=== PATIENT | male | born 1990 | race Caucasian/White ===

== ENCOUNTER 2022-02-10 17:01 | Inpatient (IN) | payer OTHER, SELFPAY ==
[~2022-02-10] VITALS: Ht 180.3 cm; Wt 64.4 kg
[2022-02-10 17:56] LABS: HEMATOCRIT 42.2 % (42.0-52.0); HEMOGLOBIN 13.9 g/dl (13.5-17.5); MEAN CORPUSCULAR HEMOGLOBIN 29.8 pg (27.0-33.0); MEAN CORPUSCULAR HGB CONC 32.9 g/dl (32.0-36.5); MEAN CORPUSCULAR VOLUME 90.4 fl (80.0-96.0); PLATELET COUNT, AUTOMATED 190 10^3/uL (150-450); RED BLOOD COUNT 4.67 10^6/uL (4.30-6.10); WHITE BLOOD COUNT 9.2 10^3/uL (4.0-10.0)
[2022-02-10 18:36] LABS: ACETAMINOPHEN LEVEL < 2.0 UG/ML (10.0-30.0); ALT/SGPT 33 U/L (12-78); BILIRUBIN,DIRECT 0.1 MG/DL (0.0-0.2); BILIRUBIN,TOTAL 0.3 MG/DL (0.2-1.0); BLOOD UREA NITROGEN 12 MG/DL (7-18); CALCIUM LEVEL 9.1 MG/DL (8.5-10.1); CARBON DIOXIDE LEVEL 31 MEQ/L (21-32); CHLORIDE LEVEL 106 MEQ/L (98-107); CREATININE FOR GFR 0.75 MG/DL (0.70-1.30); ETHYL ALCOHOL (ETHANOL) < 0.003 % (0.000-0.010); GLOMERULAR FILTRATION RATE > 60.0 (>60); GLUCOSE, FASTING 97 MG/DL (70-100); POTASSIUM SERUM 3.8 MEQ/L (3.5-5.1); SALICYLATE LEVEL < 1.7 MG/DL (5.0-30.0); SODIUM LEVEL 140 MEQ/L (136-145); THYROID STIMULATING HORMONE 0.653 uIU/ML (0.358-3.740)
[2022-02-10 18:39] LABS: AMPHETAMINES LEVEL URINE NEGATIVE (NEGATIVE); BARBITURATES URINE NEGATIVE (NEGATIVE); BENZODIAZEPINES URINE NEGATIVE (NEGATIVE); CANNABINOIDS URINE NEGATIVE (NEGATIVE); COCAINE METABOLITE URINE NEGATIVE (NEGATIVE); METHADONE URINE NEGATIVE (NEGATIVE); OPIATES URINE NEGATIVE (NEGATIVE); PHENCYCLIDINE URINE NEGATIVE (NEGATIVE)
[2022-02-10 18:46] LABS: RSV AMPLIFICATION NEGATIVE (NEGATIVE)
[2022-02-10] MEDS ORDERED: MOM 30ML SUSPENSION UDC PO PRN (21:10)
[2022-02-10] MEDS ORDERED: OLANZapine ORAL DISINTEGRATING TAB 5MG PO PRN (21:10)
[2022-02-10] MEDS ORDERED: MAALOX 30 ML SUSP *UDC PO PRN (21:10)
[2022-02-10] MEDS ORDERED: HOME MED LIST COMPLETE! XX SCH (21:30)
[2022-02-11 00:11] VITALS: BP 136/76
[2022-02-11 06:30] VITALS: BP 111/57
[2022-02-11] MEDS ORDERED: OLANZapine 5 MG TAB PO SCH (09:00)
[2022-02-11 16:37] VITALS: BP 154/70
[2022-02-11 19:05] LABS: BLOOD UREA NITROGEN 10 MG/DL (7-18); CALCIUM LEVEL 8.8 MG/DL (8.5-10.1); CARBON DIOXIDE LEVEL 30 MEQ/L (21-32); CHLORIDE LEVEL 108 MEQ/L (98-107); CREATININE FOR GFR 0.82 MG/DL (0.70-1.30); GLOMERULAR FILTRATION RATE > 60.0 (>60); GLUCOSE, FASTING 134 MG/DL (70-100); POTASSIUM SERUM 3.7 MEQ/L (3.5-5.1); SODIUM LEVEL 143 MEQ/L (136-145)
[2022-02-11] MEDS: OLANZapine 5 MG TAB PO SCH (23:03)
[2022-02-11] MEDS: VALPROIC ACID 250MG CAP PO SCH (23:04)
[2022-02-12 06:00] VITALS: BP 136/65
[2022-02-12] MEDS: amLODIPine 5 MG TAB PO SCH (09:10)
[2022-02-12] MEDS: VALPROIC ACID 250MG CAP PO SCH ×2 (09:10→22:12)
[2022-02-12] MEDS: OLANZapine 5 MG TAB PO SCH ×2 (09:10→22:12)
[2022-02-12 18:24] VITALS: BP 140/82
[2022-02-12] MEDS: NICOTINE POLACRILEX 2 MG GUM PO PRN ×2 (18:49→23:39)
[2022-02-12] MEDS: traZODone 50 MG TAB PO PRN (23:39)
[2022-02-13 06:00] VITALS: BP 115/60
[2022-02-13] MEDS: OLANZapine 5 MG TAB PO SCH ×2 (09:29→20:43)
[2022-02-13] MEDS: VALPROIC ACID 250MG CAP PO SCH ×2 (09:29→20:43)
[2022-02-13] MEDS: amLODIPine 5 MG TAB PO SCH (09:29)
[2022-02-13 16:20] VITALS: BP 136/64
[2022-02-13] MEDS: NICOTINE POLACRILEX 2 MG GUM PO PRN (20:45)
[2022-02-14] MEDS: NICOTINE POLACRILEX 2 MG GUM PO PRN ×5 (00:41→21:03)
[2022-02-14 06:19] VITALS: BP 132/73
[2022-02-14] MEDS: OLANZapine 5 MG TAB PO SCH ×2 (09:46→21:00)
[2022-02-14] MEDS: VALPROIC ACID 250MG CAP PO SCH ×2 (09:46→21:00)
[2022-02-14] MEDS: amLODIPine 5 MG TAB PO SCH (09:46)
[2022-02-15 06:26] VITALS: BP 151/73
[2022-02-15] MEDS: amLODIPine 5 MG TAB PO SCH (09:17)
[2022-02-15] MEDS: OLANZapine 5 MG TAB PO SCH ×2 (09:17→21:29)
[2022-02-15] MEDS: VALPROIC ACID 250MG CAP PO SCH ×2 (09:17→21:30)
[2022-02-15] MEDS: NICOTINE POLACRILEX 2 MG GUM PO PRN ×2 (16:00→21:29)
[2022-02-16] MEDS: VALPROIC ACID 250MG CAP PO SCH ×2 (08:56→21:00)
[2022-02-16] MEDS: OLANZapine 5 MG TAB PO SCH ×2 (08:56→21:00)
[2022-02-16] MEDS: amLODIPine 5 MG TAB PO SCH (08:58)
[2022-02-16] MEDS: NICOTINE POLACRILEX 2 MG GUM PO PRN ×3 (08:59→21:37)
[2022-02-16 17:39] VITALS: BP 140/88
[2022-02-17 06:00] VITALS: BP 142/68
[2022-02-17] MEDS: NICOTINE POLACRILEX 2 MG GUM PO PRN ×2 (07:20→12:51)
[2022-02-17] MEDS: OLANZapine 5 MG TAB PO SCH (09:44)
[2022-02-17] MEDS: VALPROIC ACID 250MG CAP PO SCH ×2 (09:45→21:00)
[2022-02-17] MEDS: amLODIPine 5 MG TAB PO SCH (09:47)
[2022-02-17 18:44] VITALS: BP 140/84
[2022-02-17] MEDS ORDERED: OLANZapine 10 MG TAB PO SCH (21:00)
[2022-02-18] MEDS ORDERED: OLANZapine 5 MG TAB PO SCH ×2 (09:00→21:00)
[2022-02-18] MEDS: amLODIPine 5 MG TAB PO SCH (09:30)
[2022-02-18] MEDS: OLANZapine 10 MG TAB PO SCH (09:30)
[2022-02-18] MEDS: VALPROIC ACID 250MG CAP PO SCH ×2 (09:30→21:26)
[2022-02-18] MEDS: NICOTINE POLACRILEX 2 MG GUM PO PRN ×3 (09:33→18:37)
[2022-02-18 16:43] VITALS: BP 128/73
[2022-02-19] MEDS: NICOTINE POLACRILEX 2 MG GUM PO PRN ×2 (00:26→08:42)
[2022-02-19 06:41] VITALS: BP 147/72
[2022-02-19] MEDS: amLODIPine 5 MG TAB PO SCH (08:42)
[2022-02-19] MEDS: VALPROIC ACID 250MG CAP PO SCH ×2 (08:42→21:00)
[2022-02-19] MEDS: OLANZapine 10 MG TAB PO SCH (08:42)
[2022-02-19] MEDS ORDERED: BENZTROPINE 0.5 MG TAB PO PRN (13:10)
[2022-02-20 06:36] VITALS: BP 127/70
[2022-02-20] MEDS: VALPROIC ACID 250MG CAP PO SCH ×2 (08:51→20:42)
[2022-02-20] MEDS: NICOTINE POLACRILEX 2 MG GUM PO PRN ×3 (08:52→23:31)
[2022-02-20] MEDS: amLODIPine 5 MG TAB PO SCH (08:52)
[2022-02-21 06:00] VITALS: BP 139/71
[2022-02-21] MEDS: amLODIPine 5 MG TAB PO SCH (09:00)
[2022-02-21] MEDS: VALPROIC ACID 250MG CAP PO SCH ×2 (09:00→22:03)
[2022-02-21] MEDS: NICOTINE POLACRILEX 2 MG GUM PO PRN ×3 (09:02→23:57)
[2022-02-22 06:38] VITALS: BP 151/67
[2022-02-22] MEDS: VALPROIC ACID 250MG CAP PO SCH ×2 (09:39→21:00)
[2022-02-22] MEDS: amLODIPine 5 MG TAB PO SCH (09:39)
[2022-02-22] MEDS: NICOTINE POLACRILEX 2 MG GUM PO PRN (09:40)
[2022-02-22 18:53] VITALS: BP 136/71
[2022-02-23 06:50] VITALS: BP 136/73
[2022-02-23] MEDS: amLODIPine 5 MG TAB PO SCH (09:40)
[2022-02-23] MEDS: VALPROIC ACID 250MG CAP PO SCH ×2 (09:40→20:49)
[2022-02-23] MEDS: NICOTINE POLACRILEX 2 MG GUM PO PRN ×2 (13:55→20:48)
[2022-02-24] MEDS: NICOTINE POLACRILEX 2 MG GUM PO PRN ×2 (01:35→15:59)
[2022-02-24 06:34] VITALS: BP 115/60
[2022-02-24] MEDS ORDERED: TUBERCULIN PPD 5 UNITS/0.1 ML ID ONE (09:00)
[2022-02-24] MEDS ORDERED: PPD DOCUMENTATION ENTRY MISC XX ONE (09:00)
[2022-02-24] MEDS: DIVALPROEX 250 MG TAB PO SCH (09:15)
[2022-02-24] MEDS: amLODIPine 5 MG TAB PO SCH (09:19)
[2022-02-24 16:33] VITALS: BP 132/76
[2022-02-24] MEDS: DIVALPROEX 500 MG TAB PO SCH (22:24)
[2022-02-25 06:59] VITALS: BP 129/77
[2022-02-25] MEDS: DIVALPROEX 250 MG TAB PO SCH (07:57)
[2022-02-25] MEDS: amLODIPine 5 MG TAB PO SCH (07:58)
[2022-02-25] MEDS: NICOTINE POLACRILEX 2 MG GUM PO PRN ×3 (10:37→20:36)
[2022-02-25 19:05] VITALS: BP 124/82
[2022-02-25] MEDS: DIVALPROEX 500 MG TAB PO SCH (20:37)
[2022-02-26] MEDS: NICOTINE POLACRILEX 2 MG GUM PO PRN ×3 (00:45→16:11)
[2022-02-26 07:07] VITALS: BP 157/74
[2022-02-26] MEDS: amLODIPine 5 MG TAB PO SCH (10:28)
[2022-02-26] MEDS: DIVALPROEX 250 MG TAB PO SCH (10:29)
[2022-02-26] MEDS ORDERED: PPD DOCUMENTATION ENTRY MISC XX ONE (16:00)
[2022-02-26 18:50] VITALS: BP 129/71
[2022-02-26] MEDS: DIVALPROEX 500 MG TAB PO SCH (21:00)
[2022-02-27 06:16] VITALS: BP 140/80
[2022-02-27] MEDS: DIVALPROEX 250 MG TAB PO SCH (08:42)
[2022-02-27] MEDS: amLODIPine 5 MG TAB PO SCH (08:43)
[2022-02-27] MEDS: NICOTINE POLACRILEX 2 MG GUM PO PRN ×2 (15:52→19:55)
[2022-02-27 16:42] VITALS: BP 134/72
[2022-02-27] MEDS: DIVALPROEX 500 MG TAB PO SCH (19:55)
[2022-02-28 06:52] VITALS: BP 125/58
[2022-02-28] MEDS: DIVALPROEX 250 MG TAB PO SCH (09:58)
[2022-02-28] MEDS: amLODIPine 5 MG TAB PO SCH (09:59)
[2022-02-28] MEDS: NICOTINE POLACRILEX 2 MG GUM PO PRN ×3 (10:00→21:45)
[2022-02-28 16:13] VITALS: BP 140/78
[2022-02-28] MEDS: traZODone 50 MG TAB PO PRN (21:44)
[2022-02-28] MEDS: DIVALPROEX 500 MG TAB PO SCH (21:44)
[2022-03-01 06:00] VITALS: BP 127/64
[2022-03-01] MEDS: NICOTINE POLACRILEX 2 MG GUM PO PRN ×3 (09:01→21:52)
[2022-03-01] MEDS: DIVALPROEX 250 MG TAB PO SCH (09:01)
[2022-03-01] MEDS: amLODIPine 5 MG TAB PO SCH (09:02)
[2022-03-01 16:19] VITALS: BP 129/64
[2022-03-01] MEDS: DIVALPROEX 500 MG TAB PO SCH (20:57)
[2022-03-02 07:00] VITALS: BP 135/80
[2022-03-02] MEDS: NICOTINE POLACRILEX 2 MG GUM PO PRN ×2 (09:50→17:44)
[2022-03-02] MEDS: DIVALPROEX 250 MG TAB PO SCH (09:50)
[2022-03-02] MEDS: amLODIPine 5 MG TAB PO SCH (09:51)
[2022-03-02 19:17] VITALS: BP 130/71
[2022-03-02] MEDS: DIVALPROEX 500 MG TAB PO SCH (22:07)
[2022-03-03 06:44] VITALS: BP 104/66
[2022-03-03] MEDS: amLODIPine 5 MG TAB PO SCH (09:49)
[2022-03-03] MEDS: NICOTINE POLACRILEX 2 MG GUM PO PRN ×3 (09:49→21:35)
[2022-03-03] MEDS: DIVALPROEX 250 MG TAB PO SCH (09:49)
[2022-03-03 15:45] VITALS: BP 126/71
[2022-03-03] MEDS: DIVALPROEX 500 MG TAB PO SCH (21:32)
[2022-03-04] MEDS: NICOTINE POLACRILEX 2 MG GUM PO PRN ×3 (00:33→19:57)
[2022-03-04 06:56] VITALS: BP 137/71
[2022-03-04] MEDS: amLODIPine 5 MG TAB PO SCH (09:48)
[2022-03-04] MEDS: DIVALPROEX 500 MG TAB PO SCH ×2 (09:48→19:57)
[2022-03-04 18:18] VITALS: BP 143/70
[2022-03-05] MEDS: NICOTINE POLACRILEX 2 MG GUM PO PRN ×4 (00:02→22:43)
[2022-03-05] MEDS: DIVALPROEX 500 MG TAB PO SCH ×2 (10:36→20:44)
[2022-03-05] MEDS: amLODIPine 5 MG TAB PO SCH (10:36)
[2022-03-05 15:31] VITALS: BP 127/57
[2022-03-06] MEDS: DIVALPROEX 500 MG TAB PO SCH ×2 (09:37→21:21)
[2022-03-06] MEDS: amLODIPine 5 MG TAB PO SCH (09:37)
[2022-03-06] MEDS: NICOTINE POLACRILEX 2 MG GUM PO PRN ×2 (09:37→17:03)
[2022-03-06 18:57] VITALS: BP 130/72
[2022-03-07 06:34] VITALS: BP 126/56
[2022-03-07] MEDS: amLODIPine 5 MG TAB PO SCH (08:46)
[2022-03-07] MEDS: NICOTINE POLACRILEX 2 MG GUM PO PRN ×3 (08:46→21:34)
[2022-03-07] MEDS: DIVALPROEX 500 MG TAB PO SCH ×2 (08:46→21:32)
[2022-03-07 18:42] VITALS: BP 122/82
[2022-03-08] MEDS: NICOTINE POLACRILEX 2 MG GUM PO PRN ×4 (01:11→23:37)
[2022-03-08 06:00] VITALS: BP 126/62
[2022-03-08] MEDS: amLODIPine 5 MG TAB PO SCH (09:49)
[2022-03-08] MEDS: DIVALPROEX 500 MG TAB PO SCH ×2 (09:49→21:51)
[2022-03-09 06:39] VITALS: BP 122/60
[2022-03-09] MEDS: NICOTINE POLACRILEX 2 MG GUM PO PRN ×2 (10:05→20:02)
[2022-03-09] MEDS: DIVALPROEX 500 MG TAB PO SCH ×2 (10:05→20:02)
[2022-03-09] MEDS: amLODIPine 5 MG TAB PO SCH (10:07)
[2022-03-09 16:47] VITALS: BP 127/68
[2022-03-10] MEDS: NICOTINE POLACRILEX 2 MG GUM PO PRN ×4 (00:02→22:40)
[2022-03-10 06:35] VITALS: BP 125/60
[2022-03-10] MEDS: DIVALPROEX 500 MG TAB PO SCH ×2 (11:22→21:16)
[2022-03-10] MEDS: amLODIPine 5 MG TAB PO SCH (11:25)
[2022-03-10 18:00] VITALS: BP 122/60
[2022-03-11 07:07] VITALS: BP 109/54
[2022-03-11] MEDS: DIVALPROEX 500 MG TAB PO SCH ×2 (10:00→20:31)
[2022-03-11] MEDS: amLODIPine 5 MG TAB PO SCH (10:01)
[2022-03-11] MEDS: NICOTINE POLACRILEX 2 MG GUM PO PRN ×2 (10:02→19:25)
[2022-03-11 16:24] VITALS: BP 134/67
[2022-03-12] MEDS: NICOTINE POLACRILEX 2 MG GUM PO PRN ×2 (05:45→19:43)
[2022-03-12 07:04] VITALS: BP 118/66
[2022-03-12] MEDS: DIVALPROEX 500 MG TAB PO SCH ×2 (09:08→20:40)
[2022-03-12] MEDS: amLODIPine 5 MG TAB PO SCH (09:09)
[2022-03-12] MEDS: traZODone 50 MG TAB PO PRN (20:40)
[2022-03-13] MEDS: NICOTINE POLACRILEX 2 MG GUM PO PRN ×3 (01:31→23:31)
[2022-03-13 07:05] VITALS: BP 118/59
[2022-03-13] MEDS: DIVALPROEX 500 MG TAB PO SCH ×2 (08:40→21:17)
[2022-03-13] MEDS: amLODIPine 5 MG TAB PO SCH (08:40)
[2022-03-13 16:12] VITALS: BP 113/60
[2022-03-14 06:17] VITALS: BP 109/57
[2022-03-14] MEDS: NICOTINE POLACRILEX 2 MG GUM PO PRN ×2 (07:14→21:23)
[2022-03-14] MEDS: DIVALPROEX 250 MG TAB PO SCH (08:46)
[2022-03-14] MEDS: amLODIPine 5 MG TAB PO SCH (08:52)
[2022-03-14 17:01] VITALS: BP 119/63
[2022-03-14] MEDS: DIVALPROEX 500 MG TAB PO SCH ×2 (20:51→21:23)
[2022-03-15 06:30] VITALS: BP 119/62
[2022-03-15] MEDS: NICOTINE POLACRILEX 2 MG GUM PO PRN ×2 (06:56→19:20)
[2022-03-15] MEDS: DIVALPROEX 250 MG TAB PO SCH (08:16)
[2022-03-15] MEDS: amLODIPine 5 MG TAB PO SCH (08:17)
[2022-03-15 16:36] VITALS: BP 127/60
[2022-03-15] MEDS: DIVALPROEX 500 MG TAB PO SCH (20:58)
[2022-03-16] MEDS: NICOTINE POLACRILEX 2 MG GUM PO PRN ×3 (02:15→20:51)
[2022-03-16 06:26] VITALS: BP 135/73
[2022-03-16] MEDS: DIVALPROEX 250 MG TAB PO SCH (08:47)
[2022-03-16] MEDS: amLODIPine 5 MG TAB PO SCH (08:47)
[2022-03-16 18:48] VITALS: BP 132/84
[2022-03-16] MEDS: DIVALPROEX 500 MG TAB PO SCH (20:52)
[2022-03-17] MEDS: NICOTINE POLACRILEX 2 MG GUM PO PRN ×3 (03:30→21:23)
[2022-03-17 06:39] VITALS: BP 145/68
[2022-03-17] MEDS: DIVALPROEX 250 MG TAB PO SCH (09:00)
[2022-03-17] MEDS: amLODIPine 5 MG TAB PO SCH (09:01)
[2022-03-17 17:52] VITALS: BP 129/62
[2022-03-17] MEDS: DIVALPROEX 500 MG TAB PO SCH (21:20)
[2022-03-18] MEDS: NICOTINE POLACRILEX 2 MG GUM PO PRN (05:11)
[2022-03-18 06:55] VITALS: BP 115/59
[2022-03-18] MEDS: amLODIPine 5 MG TAB PO SCH (08:16)
[2022-03-18] MEDS: DIVALPROEX 250 MG TAB PO SCH (08:16)
[2022-03-18 16:35] VITALS: BP 103/59
[2022-03-18] MEDS: DIVALPROEX 500 MG TAB PO SCH (20:24)
[2022-03-19] MEDS: NICOTINE POLACRILEX 2 MG GUM PO PRN ×3 (04:00→21:17)
[2022-03-19] MEDS: DIVALPROEX 250 MG TAB PO SCH (08:35)
[2022-03-19] MEDS: amLODIPine 5 MG TAB PO SCH (08:50)
[2022-03-19 18:12] VITALS: BP 114/57
[2022-03-19] MEDS: DIVALPROEX 500 MG TAB PO SCH (21:17)
[2022-03-20 06:33] VITALS: BP 126/66
[2022-03-20] MEDS: NICOTINE POLACRILEX 2 MG GUM PO PRN ×2 (07:16→17:56)
[2022-03-20] MEDS: DIVALPROEX 250 MG TAB PO SCH (09:09)
[2022-03-20] MEDS: amLODIPine 5 MG TAB PO SCH (09:10)
[2022-03-20] MEDS ORDERED: ACETAMINOPHEN TAB 650MG DOSE (2X325MG) PO PRN (09:50)
[2022-03-20 18:31] VITALS: BP 128/80
[2022-03-20] MEDS: DIVALPROEX 500 MG TAB PO SCH (21:01)
[2022-03-21] MEDS: NICOTINE POLACRILEX 2 MG GUM PO PRN ×3 (05:49→21:02)
[2022-03-21 07:04] VITALS: BP 129/60
[2022-03-21] MEDS: DIVALPROEX 250 MG TAB PO SCH (08:06)
[2022-03-21] MEDS: amLODIPine 5 MG TAB PO SCH (08:06)
[2022-03-21 18:11] VITALS: BP 112/60
[2022-03-21] MEDS: traZODone 50 MG TAB PO PRN (21:00)
[2022-03-21] MEDS: DIVALPROEX 500 MG TAB PO SCH (21:00)
[2022-03-21] MEDS: BENZTROPINE 1 MG TAB PO PRN (21:01)
[2022-03-22 06:30] VITALS: BP 120/57
[2022-03-22] MEDS: DIVALPROEX 250 MG TAB PO SCH (09:37)
[2022-03-22] MEDS: amLODIPine 5 MG TAB PO SCH (09:38)
[2022-03-22] MEDS: BENZTROPINE 1 MG TAB PO PRN (09:39)
[2022-03-22 18:14] VITALS: BP 119/55
[2022-03-22] MEDS: DIVALPROEX 500 MG TAB PO SCH (21:08)
[2022-03-22] MEDS: NICOTINE POLACRILEX 2 MG GUM PO PRN (21:10)
[2022-03-23] MEDS: NICOTINE POLACRILEX 2 MG GUM PO PRN ×3 (06:47→20:53)
[2022-03-23 06:51] VITALS: BP 108/59
[2022-03-23] MEDS: DIVALPROEX 250 MG TAB PO SCH (08:03)
[2022-03-23] MEDS: amLODIPine 5 MG TAB PO SCH (08:04)
[2022-03-23] MEDS: BENZTROPINE 1 MG TAB PO PRN (11:33)
[2022-03-23 16:11] VITALS: BP 127/68
[2022-03-23] MEDS: DIVALPROEX 500 MG TAB PO SCH (20:53)
[2022-03-24 06:16] VITALS: BP 124/68
[2022-03-24] MEDS: DIVALPROEX 250 MG TAB PO SCH (07:33)
[2022-03-24] MEDS: amLODIPine 5 MG TAB PO SCH (07:34)
[2022-03-24] MEDS: NICOTINE POLACRILEX 2 MG GUM PO PRN ×2 (08:07→21:37)
[2022-03-24 17:12] VITALS: BP 127/58
[2022-03-24] MEDS: DIVALPROEX 500 MG TAB PO SCH (21:37)
[2022-03-25 06:30] VITALS: BP 116/70
[2022-03-25] MEDS ORDERED: HALOPERIDOL DECANOATE 100 MG/ML VIAL (J1631) IM ONE (10:00)
[2022-03-25] MEDS: amLODIPine 5 MG TAB PO SCH (10:12)
[2022-03-25] MEDS: DIVALPROEX 250 MG TAB PO SCH (10:12)
[2022-03-25] MEDS: NICOTINE POLACRILEX 2 MG GUM PO PRN (10:16)
[2022-03-25 17:22] VITALS: BP 125/58
[2022-03-25] MEDS: DIVALPROEX 500 MG TAB PO SCH (21:24)
[2022-03-26 06:47] VITALS: BP 120/70
[2022-03-26] MEDS: DIVALPROEX 250 MG TAB PO SCH (08:34)
[2022-03-26] MEDS: amLODIPine 5 MG TAB PO SCH (08:34)
[2022-03-26] MEDS: NICOTINE POLACRILEX 2 MG GUM PO PRN (08:35)
[2022-03-26] MEDS: DIVALPROEX 500 MG TAB PO SCH (21:00)
[2022-03-27 06:00] VITALS: BP 139/78
[2022-03-27 09:46] VITALS: BP 139/78
[2022-03-27] MEDS: amLODIPine 5 MG TAB PO SCH (09:46)
[2022-03-27] MEDS: NICOTINE POLACRILEX 2 MG GUM PO PRN ×2 (09:47→17:07)
[2022-03-27] MEDS: DIVALPROEX 250 MG TAB PO SCH (09:47)
[2022-03-27] MEDS ORDERED: AMLO1TAB24 PO ×2 (15:16→15:18)
[2022-03-27] MEDS ORDERED: HALD100I2 IM (15:16)
[2022-03-27] MEDS ORDERED: BENZ-52 PO (15:16)
[2022-03-27] MEDS ORDERED: DEPA1TAB3 PO (15:16)
[2022-03-27] MEDS ORDERED: TRAZ-252 PO (15:16)
[2022-03-27] MEDS ORDERED: DEPA250T32 PO (15:16)
[2022-03-27] MEDS ORDERED: HALO10TA20 PO (15:16)
[2022-03-27 17:36] VITALS: BP 119/59
== END 2022-03-27 18:23 | disposition home or self-care (01) | DRG 750 ==
LOC: M ED 17:01 → M ED INP 21:06 → M PSY 23:59
PROVIDERS: ADMIT Psychiatry & Neurology Psychiatry; ATTEND Psychiatry & Neurology Psychiatry
DX: F20.9 Schizophrenia, unspecified (principal); F43.10 Post-traumatic stress disorder, unspecified; F41.1 Generalized anxiety disorder; Z59.00 Homelessness unspecified; Z56.0 Unemployment, unspecified; F17.210 Nicotine dependence, cigarettes, uncomplicated; F19.11 Other psychoactive substance abuse, in remission; Z20.822 Contact with and (suspected) exposure to COVID-19; Z88.0 Allergy status to penicillin